=== PATIENT | female | born 1950 | race Caucasian/White ===

== ENCOUNTER 2017-06-23 13:48 | Outpatient (CLI) | payer MEDICARE ==
--- NOTE | 2017-06-23 16:51 | MMO ---
BILATERAL SCREENING MAMMOGRAMS: DATE: 06/23/2017 COMPARISON: Exams of 2013, 2014, and 2016. This patient's mammogram was interpreted with the assistance of computer-aided detection. FINDINGS: Heterogeneously dense glandular pattern. No evidence of mass, distortion, or suspicious calcificatio n. No evidence of interval change. IMPRESSION: BI-RADS 1: Negative. Recommend one year follow-up. POS: ANDRZEJ
== END 2017-06-23 13:49 | disposition home or self-care (01) ==
LOC: SCSMAMMO 13:48
PROVIDERS: ATTEND Obstetrics & Gynecology
DX: Z12.31 Encounter for screening mammogram for malignant neoplasm of breast (principal)
CPT/HCPCS: 77067; G0202

== ENCOUNTER 2018-08-04 09:12 | Outpatient (CLI) | payer MEDICARE ==
--- NOTE | 2018-08-04 10:51 | MMO ---
BILATERAL SCREENING MAMMOGRAM: DATE: 08/04/18 HISTORY: 67-year-old female for screening mammography. COMPARISON: 06/23/17, 06/12/16, 05/11/15. FINDINGS: Bilateral MLO and CC views of the breasts show heterogeneously dense breast parenchyma, which may low er the sensitivity of mammography. A benign-appearing calcification is seen in the right breast. Ther e is no evidence of suspicious mass, suspicious cluster of microcalcifications, or area of architectu ral distortion. Interpretation of this mammogram was performed with the assistance of computer-aided detection. IMPRESSION: BIRADS 2: Benign Finding(s) Annual screening mammography is recommended. POS: ANDRZEJ
== END 2018-08-04 09:13 | disposition home or self-care (01) ==
LOC: SCSMAMMO 09:12
PROVIDERS: ATTEND Obstetrics & Gynecology
DX: Z12.31 Encounter for screening mammogram for malignant neoplasm of breast (principal)
CPT/HCPCS: 77067

== ENCOUNTER 2023-12-30 13:41 | Outpatient (CLI) | payer MEDICARE | END 2023-12-30 13:42 | disposition home or self-care (01) | LOC: SCSMRI 13:41 | PROVIDERS: ATTEND Specialist | DX: J38.02 Paralysis of vocal cords and larynx, bilateral (principal) | CPT/HCPCS: 70553 ==